=== PATIENT | male | born 1950 | race Caucasian/White ===

== ENCOUNTER → 2016-11-22 | Outpatient (CLI) | payer OTHER ==
[~2016-11-22] MED LIST: LOSA50TA2 PO
== END | disposition home or self-care (01) ==
LOC: CFH 06:47
PROVIDERS: ATTEND Family Medicine
DX: R01.1 Cardiac murmur, unspecified (principal); E78.5 Hyperlipidemia, unspecified; I10 Essential (primary) hypertension
CPT/HCPCS: 93306

== ENCOUNTER → 2018-03-04 | Outpatient (CLI) | payer MEDICARE | END | disposition home or self-care (01) | LOC: CVU 11:11 | PROVIDERS: ATTEND Family Medicine | DX: I65.23 Occlusion and stenosis of bilateral carotid arteries (principal); I10 Essential (primary) hypertension; E78.5 Hyperlipidemia, unspecified; C44.91 Basal cell carcinoma of skin, unspecified | CPT/HCPCS: 93880 ==

== ENCOUNTER → 2018-04-01 | Outpatient (CLI) | payer MEDICARE ==
[~2018-04-01] MED LIST changes: +REGADENOSON 0.4 MG/5 ML SYRINGE ONE
== END | disposition home or self-care (01) ==
LOC: CFH 12:02
PROVIDERS: ATTEND Internal Medicine Cardiovascular Disease
DX: I25.10 Atherosclerotic heart disease of native coronary artery without angina pectoris (principal)
CPT/HCPCS: 78452; 93017; A9502; J2785

== ENCOUNTER 2018-04-11 08:05 | Day surgery (SDC) | payer MEDICARE ==
[~2018-04-11] VITALS: Ht 182.9 cm; Wt 78.2 kg
[~2018-04-11 08:05] MED LIST changes: -REGADENOSON 0.4 MG/5 ML SYRINGE ONE
[2018-04-11 08:25] VITALS: BP 126/82
[2018-04-11] MEDS ORDERED: ASPI-691 PO (08:37)
[2018-04-11] MEDS ORDERED: ROSU20TA PO (08:37)
[2018-04-11] MEDS ORDERED: SODIUM CHLORIDE 0.9% 1,000 ML IV SCH ×3 (08:52→11:11)
[2018-04-11] MEDS ORDERED: LIDOCAINE-MPF 2%, 2ML ONE (10:34)
[2018-04-11] MEDS ORDERED: FENTANYL PF 100 MCG/2ML ONE (10:34)
[2018-04-11] MEDS ORDERED: HEPARIN 1,000 UNITS/ML, 10ML ONE (10:34)
[2018-04-11] MEDS ORDERED: VERAPAMIL 2.5 MG/ML, 2ML ONE (10:34)
[2018-04-11] MEDS ORDERED: DIPHENHYDRAMINE 50 MG/ML, 1ML ONE (10:34)
[2018-04-11] MEDS ORDERED: MIDAZOLAM 1 MG/ML, 2ML ONE (10:34)
[2018-04-11] MEDS ORDERED: NITROGLYCERIN 5 MG/ML, 10ML ONE (10:38)
== END 2018-04-11 13:49 | disposition home or self-care (01) ==
LOC: CACL 08:05
PROVIDERS: ATTEND Internal Medicine Cardiovascular Disease
DX: I25.10 Atherosclerotic heart disease of native coronary artery without angina pectoris (principal); I10 Essential (primary) hypertension; E78.2 Mixed hyperlipidemia; D64.9 Anemia, unspecified; Z79.82 Long term (current) use of aspirin; Z79.899 Other long term (current) drug therapy; Z86.718 Personal history of other venous thrombosis and embolism; Z98.890 Other specified postprocedural states; Z85.828 Personal history of other malignant neoplasm of skin
CPT/HCPCS: 93458; 99156; C1769; C1894; J1200; J1644; J2250; J3010; J3490; Q9967

== ENCOUNTER → 2018-06-09 | Outpatient (CLI) | payer MEDICARE ==
[~2018-06-09] MED LIST changes: +ASPI-691 PO; +MELO15TA24 PO; +OXYC5CAP2 PO; +ROSU20TA PO
[2018-06-09 12:34] LABS: BASOPHILS # (AUTO) 0.08 x10^3/uL (0-0.1); BASOPHILS % (AUTO) 1 % (0-1); EOSINOPHILS # (AUTO) 0.28 x10^3/uL (0-0.4); EOSINOPHILS % (AUTO) 4 % (1-7); LYMPHOCYTES # (AUTO) 1.51 x10^3/uL (1-3.4); LYMPHOCYTES % (AUTO) 22 % (22-44); MD NO; MEAN CORPUSCULAR HEMOGLOBIN 32.4 pg (27.5-34.5); MEAN CORPUSCULAR HGB CONC 34.1 g/dL (33.2-36.2); MEAN CORPUSCULAR VOLUME 94.9 fL (81-97); MEAN PLATELET VOLUME 9.3 fL (7.4-10.4); MONOCYTES # (AUTO) 0.42 x10^3/uL (0.2-0.8); MONOCYTES % (AUTO) 6 % (2-9); NEUTROPHILS # (AUTO) 4.48 x10^3/uL (1.8-6.8); NEUTROPHILS % (AUTO) 66 % (42-75); PLATELET COUNT 257 x10^3/uL (130-400); RED BLOOD COUNT 4.24 x10^6/uL (4.38-5.82); RED CELL DISTRIBUTION WIDTH 13.9 % (9.4-14.8)
[2018-06-09 12:46] LABS: ALBUMIN 3.7 g/dL (3.4-5.0); ANION GAP 5 mmol/L (5-15); CHLORIDE 110 mmol/L (98-107)
[2018-06-09 12:47] LABS: CULTURE INDICATED? NO; MICROSCOPIC NOT IND
[2018-06-09 12:49] LABS: ALANINE AMINOTRANSFERASE 60 U/L (12-78); ALKALINE PHOSPHATASE 99 U/L (45-117); BILIRUBIN,TOTAL 0.4 mg/dL (0.2-1.0); CREATININE 0.83 mg/dL (0.7-1.3); TOTAL PROTEIN 7.2 g/dL (6.4-8.2)
== END | disposition home or self-care (01) ==
LOC: STAR 11:15
PROVIDERS: ATTEND Orthopaedic Surgery
DX: Z01.818 Encounter for other preprocedural examination (principal); M17.11 Unilateral primary osteoarthritis, right knee
CPT/HCPCS: 36415; 80053; 81003; 85025; 87081; 93005

== ENCOUNTER 2018-06-16 06:30 | Inpatient (IN) | payer MEDICARE ==
[~2018-06-16] VITALS: Ht 182.9 cm; Wt 83.5 kg
[~2018-06-16 06:30] MED LIST changes: -OXYC5CAP2 PO
[2018-06-16] MEDS: LACTATED RINGERS 1,000 ML IV SCH ×2 (07:22→13:21)
[2018-06-16] MEDS ORDERED: LIDOCAINE-MPF 1%, 2ML INFIL ONE (07:30)
[2018-06-16] MEDS ORDERED: MIDAZOLAM 1 MG/ML, 2ML ONE (08:28)
[2018-06-16] MEDS ORDERED: FENTANYL PF 250 MCG/5ML ONE (08:29)
[2018-06-16] MEDS ORDERED: GABAPENTIN 300 MG CAPSULE PO ONE (08:30)
[2018-06-16] MEDS ORDERED: OXYcodone IR 5MG TABLET PO ONE (08:30)
[2018-06-16] MEDS ORDERED: ACETAMINOPHEN 500 MG TABLET PO ONE (08:30)
[2018-06-16] MEDS ORDERED: ONDANSETRON ODT 8 MG PO ONE (08:30)
[2018-06-16] MEDS ORDERED: TRANEXAMIC ACID 100 MG/ML, 10ML ONE ×2 (09:09)
[2018-06-16] MEDS ORDERED: CEFAZOLIN 1,000 MG ONE (09:23)
[2018-06-16] MEDS ORDERED: PROPOFOL 10 MG/ML, 50ML ONE (09:23)
[2018-06-16] MEDS ORDERED: PROPOFOL 10 MG/ML, 20ML ONE (09:23)
[2018-06-16] MEDS ORDERED: ONDANSETRON 2MG/ML, 2ML IV PRN ×2 (10:30→11:30)
[2018-06-16] MEDS ORDERED: FENTANYL PF 100 MCG/2ML IV PRN (10:30)
[2018-06-16] MEDS ORDERED: OXYcodone 5 MG/5 ML ORAL.SOL UDC PO PRN (10:30)
[2018-06-16] MEDS ORDERED: MEPERIDINE/PF 50 MG/ML ONE (11:07)
[2018-06-16] MEDS: MEPERIDINE/PF 25MG/0.5ML IVPush PRN ×2 (11:09→12:05)
[2018-06-16] MEDS: D5%-0.45% NACL 1,000 ML IV SCH ×2 (11:11→19:11)
[2018-06-16] MEDS: HYDROmorphone 1 MG/ML, 1ML IV PRN ×2 (11:22→11:52)
[2018-06-16] MEDS ORDERED: HYDROmorphone 2 MG/ML, 1ML ONE (11:22)
[2018-06-16] MEDS ORDERED: OXYcodone 5 MG/5 ML ORAL.SOL UDC ONE (11:22)
[2018-06-16] MEDS ORDERED: DIAZEPAM 5 MG TABLET PO PRN (11:30)
[2018-06-16] MEDS ORDERED: HYDROcodone/APAP 5/325 TABLET PO PRN (11:30)
[2018-06-16] MEDS ORDERED: ONDANSETRON 4 MG TABLET PO PRN (11:30)
[2018-06-16] MEDS ORDERED: DIPHENHYDRAMINE 25 MG CAPSULE PO PRN (11:30)
[2018-06-16] MEDS ORDERED: MAGNESIUM HYDROXIDE 8%, 30ML UDC PO PRN (11:30)
[2018-06-16] MEDS ORDERED: morphine SULFATE 10 MG/ML, 1ML IV PRN (11:30)
[2018-06-16] MEDS ORDERED: PROMETHAZINE 25 MG/ML, 1ML IM PRN (11:30)
[2018-06-16] MEDS ORDERED: PROMETHAZINE 12.5 MG SUPP PR PRN (11:30)
[2018-06-16] MEDS ORDERED: DIAZEPAM 5 MG TABLET ONE (12:11)
[2018-06-16] MEDS ORDERED: CEFAZOLIN PMX 1GM/50ML 50 ML IVPB SCH (13:00)
[2018-06-16 14:19] VITALS: BP 115/69
[2018-06-16] MEDS: OXYcodone IR 5MG TABLET PO PRN ×3 (15:22→23:53)
[2018-06-16] MEDS: ACETAMINOPHEN 650 MG/20.3 ML UDC PO PRN ×2 (17:26→21:47)
[2018-06-16] MEDS: CEFAZOLIN PMX 1GM/50ML 50 ML IVPB SCH (17:27)
[2018-06-16] MEDS: DOCUSATE 100 MG CAPSULE PO SCH (19:45)
[2018-06-16 19:51] VITALS: BP 143/82
[2018-06-16] MEDS ORDERED: ATORVASTATIN 40 MG TABLET PO SCH (21:00)
[2018-06-17 00:06] VITALS: BP 121/65
[2018-06-17] MEDS: CEFAZOLIN PMX 1GM/50ML 50 ML IVPB SCH (01:10)
[2018-06-17] MEDS: D5%-0.45% NACL 1,000 ML IV SCH ×2 (03:11→10:44)
[2018-06-17] MEDS: ACETAMINOPHEN 650 MG/20.3 ML UDC PO PRN (03:19)
[2018-06-17] MEDS: OXYcodone IR 5MG TABLET PO PRN ×2 (03:54→08:24)
[2018-06-17 04:04] VITALS: BP 137/84
[2018-06-17] MEDS ORDERED: DEXAMETHASONE 4 MG/ML, 1ML IVPush SCH (06:00)
[2018-06-17 06:50] VITALS: BP 110/64
[2018-06-17] MEDS: DOCUSATE 100 MG CAPSULE PO SCH (08:24)
[2018-06-17] MEDS ORDERED: MULTIVITAMINS/MINERALS TABLET PO SCH (09:00)
[2018-06-17] MEDS ORDERED: LOSARTAN 50MG TABLET PO SCH (09:00)
[2018-06-17] MEDS ORDERED: KETOROLAC 60 MG/2 ML ONE (09:23)
[2018-06-17] MEDS ORDERED: ROPIvacaine/PF 0.2%, 20 ML ONE (09:23)
[2018-06-17] MEDS ORDERED: SODIUM CHLORIDE 0.9% 100 ML ONE (09:24)
[2018-06-17] MEDS ORDERED: EPINEPHRINE 1 MG/ML, 1ML ONE (09:24)
[2018-06-17] MEDS ORDERED: OXYC5CAP2 PO (10:56)
[2018-06-17] MEDS ORDERED: KETOROLAC 30 MG/1 ML IV SCH (11:30)
[2018-06-17] MEDS ORDERED: ASPIRIN 81 MG TABLET EC PO SCH (18:00)
== END 2018-06-17 11:31 | disposition home or self-care (01) | DRG 470 ==
LOC: OUT 06:30 → ORIP 11:11 → 4NOR 12:36 → DCLOUNGE 06-17 11:17
PROVIDERS: ADMIT Orthopaedic Surgery; ATTEND Orthopaedic Surgery
PROC: 3E0T3BZ Introduction of Anesthetic Agent into Peripheral Nerves and Plexi, Percutaneous Approach (ICD-10-PCS; 2018-06-16)
PROC: 0SRC069 Replacement of Right Knee Joint with Oxidized Zirconium on Polyethylene Synthetic Substitute, Cemented, Open Approach (ICD-10-PCS; principal; 2018-06-16 11:30)
DX: M17.31 Unilateral post-traumatic osteoarthritis, right knee (principal); E78.5 Hyperlipidemia, unspecified; I10 Essential (primary) hypertension; N28.9 Disorder of kidney and ureter, unspecified
CPT/HCPCS: 36415; 85014; 85018; C1713; G0378; J0171; J0690; J1100; J1170; J1885; J2175; J2250; J2704; J2795; J3010; Q0162; C1776; J7120